=== PATIENT | male | born 1990 | race African-American/Black ===

== ENCOUNTER 2023-05-30 14:36 | Emergency (ER) | payer SELFPAY ==
[2023-05-30] MEDS ORDERED: Ibuprofen 200 MG TAB ONE (15:16)
[2023-05-30] MEDS ORDERED: Acetaminophen 500 MG TAB ONE (15:17)
[2023-05-30 16:45] LABS: SARS-CoV-2 NAA Rapid Test Not Detected (NotDetected)
== END 2023-05-30 17:00 | disposition home or self-care (01) ==
LOC: CSHERS 14:36
DX: J20.9 Acute bronchitis, unspecified (principal); F17.210 Nicotine dependence, cigarettes, uncomplicated; Z20.822 Contact with and (suspected) exposure to COVID-19
CPT/HCPCS: 71045